=== PATIENT | female | born 1945 | race Caucasian/White ===

== ENCOUNTER 2020-07-13 21:09 | Emergency (ER) | payer MEDICARE ==
[~2020-07-13 21:09] MED LIST: DOPamine/D5W 400 mg/250 ml PREMIX ONE; EPINEPHrine 1 MG/10 ML Abboject SYRINGE ONE; EPINEPHrine 1 MG/ML AMP ONE; Sodium Bicarb 50 MEQ/50 ML Abboject 8.4% SYRINGE ONE; Sodium Chloride 0.9% 1,000 ML BAG ONE; Succinylcholine 200 MG/10 ml SYRINGE FS ONE
[2020-07-13] MEDS ORDERED: Sodium Chloride 0.9% 100 ML ONE ×2 (22:08→23:05)
[2020-07-13] MEDS ORDERED: EPINEPHrine 1 MG/10 ML Abboject SYRINGE ONE (22:08)
[2020-07-13] MEDS ORDERED: EPINEPHrine 1 MG/ML AMP ONE ×2 (22:19→22:31)
--- NOTE | 2020-07-13 22:48 | RAD ---
XR Chest 1 View Portable HISTORY: Respiratory failure FINDINGS: The heart size is normal. There is an endotracheal tube with tip at the level of the clavicular head s. The lungs are well expanded without focal areas of consolidation, pneumothorax or pleural effusions.
[2020-07-13] MEDS ORDERED: Piperacillin/Tazobactam 3.375 GM VIAL ONE ×2 (22:56→23:05)
[2020-07-13 23:32] LABS: ALT (SGPT) 329 U/L (8-55); AST (SGOT) 288 U/L (5-34); Alkaline Phosphatase 135 U/L (40-110); Anion Gap 32 mmol/L (10-20); BUN (Urea Nitrogen) 24 mg/dL (9.8-20.1); Bilirubin, Total 0.3 mg/dL (0.2-1.2); CK (CPK) 313 U/L (29-168); Calc. Creatinine Clearance 0 mL/min (70-130); Calcium 7.2 mg/dL (7.8-10.44); Carbon Dioxide 10 mmol/L (23-31); Chloride 108 mmol/L (98-107); Estimated GFR-MDRD 32; Globulin 1.5 g/dL (2.4-3.5); Potassium 5.6 mmol/L (3.5-5.1); Protein, Total 3.5 g/dL (6.0-8.3); Sodium 144 mmol/L (136-145)
[2020-07-14 00:04] LABS: Clarity CLEAR (Clear); Leukocyte Negative (Negative); Nitrite Negative (Negative); Specific Gravity, Urine 1.025 (1.005-1.030); pH, Urine 5.5 (5.0-9.0)
[2020-07-14 00:05] LABS: Bilirubin Negative (Negative); Glucose, Urine (Dipstick) Negative (Negative); Ketone, Urine Negative (Negative); Protein, Urine (Dipstick) Negative (Neg-Trace); Urobilinogen 0.2 mg/dL (Less than 2)
[2020-07-14 00:06] LABS: Blood, Urine Moderate (Negative)
== END 2020-07-13 23:50 | disposition short-term general hospital (02) ==
LOC: MADERS 21:09
DX: I46.9 Cardiac arrest, cause unspecified (principal); R19.7 Diarrhea, unspecified; R11.2 Nausea with vomiting, unspecified; E11.9 Type 2 diabetes mellitus without complications
CPT/HCPCS: 31500; 36416; 36556; 71045; 80053; 81003; 81015; 82550; 83605; 84484; 85025; 87040; 93005; 94760; 96361; 96365; 96366; 96367; 96374; 96375; 96376; 99292; J0171; J1265; J2543; J3370; J3490; J7050